=== PATIENT | male | born 1985 | race Caucasian/White ===

== ENCOUNTER 2017-08-16 02:26 | Emergency (ER) | payer OTHER ==
[~2017-08-16] VITALS: Ht 175.3 cm; Wt 68.0 kg
[~2017-08-16 02:26] MED LIST: AMOXICILLIN500 M1 PO; ERYTHROMYCIN E3.5 G3 OPHTHALMIC; IBUPROFEN 800800 M1 PO; KEFLEX500 MG PO; NOHOMEMEDICATIONS; NORCO 5-325 TA1 EAC1 PO; NORCO 5-325 TA1 EACH PO; PENICILLIN V P500 MG PO; PENICILLIN VK500 MG PO; VICODIN 5-5001 EACH PO
[2017-08-16 03:43] VITALS: BP 102/65
== END 2017-08-16 03:45 | disposition home or self-care (01) ==
LOC: M.ERS 02:26
DX: T26.42XA Burn of left eye and adnexa, part unspecified, initial encounter (principal); T26.41XA Burn of right eye and adnexa, part unspecified, initial encounter; T75.09XA Other effects of lightning, initial encounter; Y93.89 Activity, other specified; Y92.89 Other specified places as the place of occurrence of the external cause; Y99.8 Other external cause status